=== PATIENT | female | born 1970 | race Caucasian/White ===

== ENCOUNTER 2017-01-08 09:05 | Emergency (ER) | payer BC ==
--- NOTE | 2017-01-08 09:44 | ER Document Report ---
ED Medical Screen (RME) - General Chief Complaint: Abscess Stated Complaint: ABCESS Mode of Arrival: Ambulatory Information source: Patient Notes: This is a 46-year-old female who presents with a 3 day history of right labial pain and swelling after shaving this weekend. She denies any fevers chills or systemic symptoms. No prior history of MRSA or abscess. I have greeted and performed a rapid initial assessment of this patient. A comprehensive ED assessment and evaluation of the patient, analysis of test results and completion of the medical decision making process will be conducted by additional ED providers. TRAVEL OUTSIDE OF THE [place] IN LAST 30 DAYS: No - Related Data Allergies/Adverse Reactions: promethazine HCl [From Phenergan] Allergy (Verified 01/08/17 11:12) Past Medical History - Past Medical History Cardiac Medical History: Reports: Hx Atrial Fibrillation, Hx Coronary Artery Disease, Hx Heart Attack, Hx Hypercholesterolemia, Hx Hypertension Renal/ Medical History: Denies: Hx Peritoneal Dialysis Past Surgical History: Reports: Hx Cardiac Catheterization - 2009, NO STENT, Hx Cholecystectomy, Hx Hysterectomy, Hx Tubal Ligation - Immunizations Immunizations up to date: Yes Hx Diphtheria, Pertussis, Tetanus Vaccination: Yes Physical Exam - Vital signs Vitals: Temp Pulse Resp BP Pulse Ox 97.8 F 84 16 154/90 H 99 01/08/17 09:07 01/08/17 09:07 01/08/17 09:07 01/08/17 09:07 01/08/17 09:07 Course - Vital Signs Vital signs: Temp Pulse Resp BP Pulse Ox 97.7 F 43 L 18 136/91 H 99 01/08/17 12:15 01/08/17 12:15 01/08/17 12:15 01/08/17 12:15 01/08/17 12:15 Doctor's Discharge - Discharge Clinical Impression: Bartholin's gland abscess, Hypertension Condition: Stable Disposition: HOME, SELF-CARE Additional Instructions: take antibiotic as prescribed pain med as needed wash area with antibacterial soap and water follow up with pcm/[facility]LE[facility]ER if pain persists Prescriptions: Oxycodone HCl/Acetaminophen [Percocet 5-325 mg Tablet] 1 - 2 tab PO ASDIR PRN # 15 tablet PRN Reason: Sulfamethoxazole/Trimethoprim [Bactrim Ds Tablet] 1 each PO BID #20 tablet Forms: Elevated Blood Pressure Referrals: JAMAAL PAK MD [Primary Care Provider] - Follow up as needed
[2017-01-08] MEDS ORDERED: LIDOCAINE 1% INJ-PF (10 MG/ML) 30 ML SDV INJ ONE (10:58)
--- NOTE | 2017-01-08 11:04 | ER Document Report ---
ED Skin Rash/Insect Bite/Abscs - General Chief Complaint: Abscess Stated Complaint: ABCESS Mode of Arrival: Ambulatory Notes: 46 yo female with 3 day hx/o right labial pain and swelling TRAVEL OUTSIDE OF THE [place] IN LAST 30 DAYS: No - HPI Patient complains to provider of: Tender/swollen area Onset/Duration: Persistent, Worse Quality of pain: Pressure, Sharp Skin Character: Abscess Quality of rash: Painful Exacerbated by: Movement, Walking Similar symptoms previously: No - Related Data Allergies/Adverse Reactions: promethazine HCl [From Phenergan] Allergy (Verified 07/22/16 16:47) Past Medical History - General Information source: Patient - Social History Smoking Status: Current Every Day Smoker Frequency of alcohol use: Rare Lives with: Family Family History: Reviewed & Not Pertinent - Past Medical History Cardiac Medical History: Reports: Hx Atrial Fibrillation, Hx Coronary Artery Disease, Hx Heart Attack, Hx Hypercholesterolemia, Hx Hypertension Renal/ Medical History: Denies: Hx Peritoneal Dialysis Past Surgical History: Reports: Hx Cardiac Catheterization - 2009, NO STENT, Hx Cholecystectomy, Hx Hysterectomy, Hx Tubal Ligation - Immunizations Immunizations up to date: Yes Hx Diphtheria, Pertussis, Tetanus Vaccination: Yes Review of Systems - Review of Systems Constitutional: No symptoms reported EENT: No symptoms reported Cardiovascular: No symptoms reported Respiratory: No symptoms reported Gastrointestinal: No symptoms reported Genitourinary: No symptoms reported Female Genitourinary: No symptoms reported Musculoskeletal: No symptoms reported Skin: See HPI Hematologic/Lymphatic: No symptoms reported Neurological/Psychological: No symptoms reported -: Yes All other systems reviewed and negative Physical Exam - Vital signs Vitals: Temp Pulse Resp BP Pulse Ox 97.8 F 84 16 154/90 H 99 01/08/17 09:07 01/08/17 09:07 01/08/17 09:07 01/08/17 09:07 01/08/17 09:07 Interpretation: Normal - General General appearance: Appears well, Alert - HEENT Head: Normocephalic, Atraumatic Eyes: Normal Pupils: PERRL - Respiratory Respiratory status: No respiratory distress Chest status: Nontender Breath sounds: Normal Chest palpation: Normal - Cardiovascular Rhythm: Regular Heart sounds: Normal auscultation Murmur: No - Abdominal Inspection: Normal Distension: No distension Bowel sounds: Normal Tenderness: Nontender Organomegaly: No organomegaly - Genitourinary External exam: Other - + abscess right labia - Back Back: Normal, Nontender - Extremities General upper extremity: Normal inspection, Nontender, Normal color, Normal ROM , Normal temperature General lower extremity: Normal inspection, Nontender, Normal color, Normal ROM , Normal temperature, Normal weight bearing. No: Salbador's sign - Neurological Neuro grossly intact: Yes Cognition: Normal Orientation: AAOx4 Dean Coma Scale Eye Opening: Spontaneous Dean Coma Scale Verbal: Oriented Dean Coma Scale Motor: Obeys Commands Dean Coma Scale Total: 15 Speech: Normal Motor strength normal: LUE, RUE, LLE, RLE Sensory: Normal - Psychological Associated symptoms: Normal affect, Normal mood - Skin Skin Temperature: Warm Skin Moisture: Dry Skin Color: Normal Course - Re-evaluation Re-evalutation: 01/08/17 11:04 BP noted to be elevated. pt in pain. taking meds as prescribed. asymptomatic with BP - Vital Signs Vital signs: Temp Pulse Resp BP Pulse Ox 97.8 F 84 16 154/90 H 99 01/08/17 09:07 01/08/17 09:07 01/08/17 09:07 01/08/17 09:07 01/08/17 09:07 Procedures - Incision and Drainage right labia Type: Simple Anesthetic type: 1% Lidocaine Blade size: 11 I&D procedure: Betadine prep applied, Iodoform packing placed Incision Method: Incision made by scalpel Amount/type of drainage: moderate amount Discharge - Discharge Clinical Impression: Bartholin's gland abscess Hypertension Qualifiers: Hypertension type: essential hypertension Qualified Code(s): I10 - Essential ( primary) hypertension Condition: Stable Disposition: HOME, SELF-CARE Additional Instructions: take antibiotic as prescribed pain med as needed wash area with antibacterial soap and water follow up with pcm/[employer] [facility] if pain persists Prescriptions: Oxycodone HCl/Acetaminophen [Percocet 5-325 mg Tablet] 1 - 2 tab PO ASDIR PRN # 15 tablet PRN Reason: Sulfamethoxazole/Trimethoprim [Bactrim Ds Tablet] 1 each PO BID #20 tablet Forms: Elevated Blood Pressure
[2017-01-08 12:18] VITALS: BP 136/91
== END 2017-01-08 12:18 | disposition home or self-care (01) ==
LOC: ER 09:05
PROC: 0U9L0ZZ Drainage of Vestibular Gland, Open Approach (ICD-10-PCS; principal; 2017-01-08)
DX: N75.1 Abscess of Bartholin's gland (principal); I10 Essential (primary) hypertension; F17.200 Nicotine dependence, unspecified, uncomplicated; I48.91 Unspecified atrial fibrillation; I25.10 Atherosclerotic heart disease of native coronary artery without angina pectoris; I25.2 Old myocardial infarction; E78.00 Pure hypercholesterolemia, unspecified; Z90.49 Acquired absence of other specified parts of digestive tract; Z90.710 Acquired absence of both cervix and uterus
CPT/HCPCS: 99283; 56420; J3490

== ENCOUNTER → 2017-02-20 | Outpatient (CLI) | payer BC ==
--- NOTE | 2017-02-20 11:41 | WOMENS IMAGING REPORT ---
EXAM DESCRIPTION: 3D SCREENING MAMMO BILAT COMPLETED DATE/TIME: 02/20/2017 10:55 am REASON FOR STUDY: Z12.31, ROUTINE SCREENING MAMMO Z12.31 ENCNTR SCREEN MAMMOGRAM FOR MALIGNANT NEOP LASM OF JOSEPH COMPARISON: None. TECHNIQUE: Standard craniocaudal and mediolateral oblique views of each breast recorded using digita l acquisition and breast tomosynthesis. LIMITATIONS: Jewelry artifact. FINDINGS: No masses, calcifications or architectural distortion. No areas of suspicion. Read with the assistance of CAD. .[facility] - R2 Cenova Version 1.3 .[facility] - R2 Cenova Version 1.3 .[facility] - R2 Cenova Version 2.4 .[facility] [place] - R2 Cenova Version 2.4 .[facility] - R2 Surgery Nurse Version 9.2 IMPRESSION: NORMAL MAMMOGRAM. BIRADS 1. BREAST DENSITY: a. The breasts are almost entirely fatty. BIRAD: 1 NEGATIVE RECOMMENDATION: ROUTINE SCREENING COMMENT: The patient has been notified of the results by letter per MQSA requirements. Additional no tification policies are in place for contacting patient with suspicious or incomplete findings. Quality ID #[id number]: The [employer] recommends an annual screening mammogram for women aged 40 years or over. This facility utilizes a reminder system to ensure that all patients receive reminder letters, and/or direct phone calls for appointments. This includes reminders for routine scr eening mammograms, diagnostic mammograms, or other Breast Imaging Interventions when appropriate. Th is patient will be placed in the appropriate reminder system. The [employer] (ACR) has developed recommendations for screening MRI of the breast s in certain patient populations, to be used in conjunction with mammography. Breast MRI surveillanc e may be appropriate for women with more than 20% lifetime risk of developing breast cancer as deter mined by genetic testing, significant family history of the disease, or history of mantle radiation f or Hodgkins Disease. ACR Practice Guidelines 2008. DBT Technology DBT is a type of tomographic mammography. With conventional mammography, overlapping breast tissue ma y make lesions difficult to detect, even with good compression. DBT uses an x-ray tube that rotates a round the breast, taking images at different angles. These images are then combined to create thin sl ices of the breast that the radiologist can view as a 3D reconstruction. The [employer] unit can perform full-field digital mammograms (2D imaging); or DBT (3D imaging); or both, in a combination mode that quickly performs both the mammogram and the tomosynthesis scan while the breast is still compressed. PQRS 6045F: Fluoroscopic imaging is not utilized for breast tomosynthesis. TECHNICAL DOCUMENTATION: FINDING NUMBER: (1) ASSESSMENT: (1) JOB ID: [id number] [employer]- All Rights Reserved
== END ==
LOC: WI 10:14
PROVIDERS: ATTEND Physician Assistant
DX: Z12.31 Encounter for screening mammogram for malignant neoplasm of breast (principal)
CPT/HCPCS: 77063; G0202; 77067

== ENCOUNTER 2017-12-04 15:16 | Observation (INO) | payer BC ==
[~2017-12-04 15:16] MED LIST: AMINOPHYLLINE INJ/PF 250 MG/10 ML SDV IV ONE; REGADENOSON INJ 0.4 MG/5 ML DISP.SYRIN IV ONE
--- NOTE | 2017-12-04 16:42 | ER Document Report ---
ED Medical Screen (RME) - General Chief Complaint: Chest Pain Stated Complaint: CHEST PAIN Time Seen by Provider: 12/04/17 16:34 Mode of Arrival: Ambulatory Information source: Patient Notes: 47-year-old female history of heart attack but who had a normal heart cath presents with complaints of chest pain jaw pain right knee pain Patient notes symptoms have included nausea vomiting fevers over the past few days and then pain today I have greeted and performed a rapid initial assessment of this patient. A comprehensive ED assessment and evaluation of the patient, analysis of test results and completion of the medical decision making process will be conducted by additional ED providers. PHYSICAL EXAMINATION: GENERAL: Well-appearing, well-nourished and in no acute distress. HEAD: Atraumatic, normocephalic. EYES: Pupils equal round extraocular movements intact, conjunctiva are normal. ENT: Nares patent NECK: Normal range of motion LUNGS: No respiratory distress Musculoskeletal: Normal range of motion NEUROLOGICAL: Normal speech, normal gait. PSYCH: Normal mood, normal affect. SKIN: Warm, Dry, normal turgor, no rashes or lesions noted. TRAVEL OUTSIDE OF THE [place] IN LAST 30 DAYS: No - Related Data Allergies/Adverse Reactions: promethazine HCl [From Phenergan] Allergy (Verified 12/04/17 15:25) Past Medical History - Social History Chew tobacco use (# tins/day): No Frequency of alcohol use: Occasional Drug Abuse: None - Past Medical History Cardiac Medical History: Reports: Hx Atrial Fibrillation, Hx Coronary Artery Disease, Hx Heart Attack, Hx Hypercholesterolemia, Hx Hypertension Renal/ Medical History: Denies: Hx Peritoneal Dialysis Past Surgical History: Reports: Hx Cardiac Catheterization - 2009, NO STENT, Hx Cholecystectomy, Hx Hysterectomy, Hx Tubal Ligation - Immunizations Immunizations up to date: Yes Hx Diphtheria, Pertussis, Tetanus Vaccination: Yes Physical Exam - Vital signs Vitals: Temp Pulse BP Pulse Ox 98.5 F 80 155/83 H 92 12/04/17 15:35 12/04/17 15:35 12/04/17 15:35 12/04/17 15:35 Course - Vital Signs Vital signs: Temp Pulse Resp BP Pulse Ox 98.5 F 80 155/83 H 92 12/04/17 15:35 12/04/17 15:35 12/04/17 15:35 12/04/17 15:35
[2017-12-04 17:19] LABS: ABSOLUTE EOSINOPHILS # (AUTO) 0.1 10^3/uL (0.0-0.6); ABSOLUTE LYMPHOCYTES (AUTO) 2.3 10^3/uL (0.5-4.7); ABSOLUTE MONOCYTES (AUTO) 0.3 10^3/uL (0.1-1.4); ABSOLUTE NEUT (AUTO) 5.1 10^3/uL (1.7-8.2); BASOPHILS % (AUTO) 0.1 % (0-2); HEMATOCRIT 39.9 % (36.0-47.0); HEMOGLOBIN 13.5 g/dL (12.0-15.5); LYMPHOCYTES % (AUTO) 29.5 % (13-45); MEAN CORPUSCULAR HEMOGLOBIN 29.2 pg (27.0-33.4); MEAN CORPUSCULAR HGB CONC 33.8 g/dL (32.0-36.0); MEAN CORPUSCULAR VOLUME 86 fl (80-97); MONOCYTES % (AUTO) 4.4 % (3-13); PLATELET COUNT 176 10^3/uL (150-450); RED BLOOD COUNT 4.62 10^6/uL (3.72-5.28); RED CELL DISTRIBUTION WIDTH 13.9 % (11.5-14.0); TOTAL CELLS COUNTED % (AUTO) 100 %; WHITE BLOOD COUNT 7.8 10^3/uL (4.0-10.5)
[2017-12-04 17:22] LABS: INTERNATIONAL RATION (INR) 0.85; PROTHROMBIN TIME 12.3 SEC (11.4-15.4)
[2017-12-04 17:25] LABS: D-DIMER 0.38 ug/mL (0.00-0.50)
[2017-12-04 17:34] LABS: VENOUS BLOOD BASE EXCESS 2.5 mmol/L; VENOUS BLOOD HCO3 28.9 mmol/L (20-32); VENOUS BLOOD PCO2 51.7 mmHg (35-63); VENOUS BLOOD PH 7.37 (7.30-7.42)
[2017-12-04 17:38] LABS: ALANINE AMINOTRANSFERASE 29 U/L (9-52); ALBUMIN 4.2 g/dL (3.5-5.0); ALKALINE PHOSPHATASE 67 U/L (38-126); ANION GAP 8 (5-19); ASPARTATE AMINO TRANSFERASE 18 U/L (14-36); BILIRUBIN,DIRECT 0.3 mg/dL (0.0-0.4); BILIRUBIN,TOTAL 0.3 mg/dL (0.2-1.3); BLOOD UREA NITROGEN 10 mg/dL (7-20); CALCIUM 9.4 mg/dL (8.4-10.2); CARBON DIOXIDE 31 mmol/L (22-30); CHLORIDE 102 mmol/L (98-107); CREATINE KINASE 64 U/L (30-135); GLUCOSE 89 mg/dL (75-110); POTASSIUM 4.2 mmol/L (3.6-5.0); SODIUM 141.1 mmol/L (137-145); TOTAL PROTEIN 7.8 g/dL (6.3-8.2)
[2017-12-04 17:50] LABS: CREATINE KINASE MB < 0.22 ng/mL (<4.55); TROPONIN I < 0.012 ng/mL
--- NOTE | 2017-12-04 17:54 | RADIOLOGY REPORT (SQ) ---
EXAM DESCRIPTION: CHEST PA/LAT COMPLETED DATE/TIME: 12/04/2017 5:24 pm REASON FOR STUDY: fever COMPARISON: 02/21/2016 EXAM PARAMETERS: NUMBER OF VIEWS: two views TECHNIQUE: Digital Frontal and Lateral radiographic views of the chest acquired. RADIATION DOSE: NA LIMITATIONS: none FINDINGS: LUNGS AND PLEURA: No acute opacities, masses or pneumothorax. No pleural effusion. MEDIASTINUM AND HILAR STRUCTURES: Stable. HEART AND VASCULAR STRUCTURES: Heart normal size. No evidence for failure. BONES: No acute findings. HARDWARE: None in the chest. OTHER: No other significant finding. IMPRESSION: No acute findings. TECHNICAL DOCUMENTATION: JOB ID: [id number] [place]-72 2010 [employer]- All Rights Reserved Reading location - IP/workstation name: [email or web address]
--- NOTE | 2017-12-04 18:04 | ER Document Report ---
ED Cardiac - General Chief Complaint: Chest Pain Stated Complaint: CHEST PAIN Time Seen by Provider: 12/04/17 16:34 Mode of Arrival: Ambulatory Information source: Patient TRAVEL OUTSIDE OF THE [place] IN LAST 30 DAYS: No - HPI Patient complains to provider of: Chest pain Use of: denies: Alcohol, Amphetamines, Bath salts, Caffeine, Cocaine, Decongestants Was the onset of pain: Gradual When did pain begin: FEW NIGHTS AGO Is the pain a: New problem Chest pain location: Other - UPPER STERNAL Quality of pain: Heaviness, Pressure Chest pain radiation location: Left jaw, Right jaw, Right arm Severity now: None Severity at worst: Moderate Chest pain precipitating factors: FREQUENT @ NIGHT, TODAY @ WORK Cardiac risk factors: Hypertension. denies: Smoker Positive cardiac history: Yes Associated symptoms: Diaphoresis, Lightheaded, Nausea/vomiting, Shortness of breath Exacerbated by: Denies Relieved by: Nothing Similar symptoms previously: Yes - NOT RECENT Recently seen / treated by doctor: No - Related Data Allergies/Adverse Reactions: promethazine HCl [From Phenergan] Allergy (Verified 12/04/17 15:25) Past Medical History - General Information source: Patient - Social History Smoking Status: Former Smoker Cigarette use (# per day): No Chew tobacco use (# tins/day): No Frequency of alcohol use: Occasional Drug Abuse: None Lives with: Family Family History: Reviewed & Not Pertinent Patient has suicidal ideation: No Patient has homicidal ideation: No - Past Medical History Cardiac Medical History: Reports: Hx Atrial Fibrillation, Hx Coronary Artery Disease, Hx Heart Attack, Hx Hypercholesterolemia, Hx Hypertension Pulmonary Medical History: Reports: None EENT Medical History: Reports: None Neurological Medical History: Reports: None Endocrine Medical History: Reports: None Renal/ Medical History: Reports: None. Denies: Hx Peritoneal Dialysis Malignancy Medical History: Reports: None GI Medical History: Reports: None Musculoskeltal Medical History: Reports None Psychiatric Medical History: Reports: None Past Surgical History: Reports: Hx Cardiac Catheterization - 2009, NO STENT, Hx Cholecystectomy, Hx Hysterectomy, Hx Tubal Ligation - Immunizations Immunizations up to date: Yes Hx Diphtheria, Pertussis, Tetanus Vaccination: Yes Review of Systems - Review of Systems Constitutional: Diaphoresis EENT: No symptoms reported Cardiovascular: See HPI Respiratory: See HPI Gastrointestinal: See HPI Genitourinary: No symptoms reported Female Genitourinary: denies: Musculoskeletal: No symptoms reported Skin: No symptoms reported Neurological/Psychological: No symptoms reported Physical Exam - Vital signs Vitals: Temp Pulse BP Pulse Ox 98.5 F 80 155/83 H 92 12/04/17 15:35 12/04/17 15:35 12/04/17 15:35 12/04/17 15:35 Interpretation: Hypertensive. No: Tachycardic, Tachypneic - General General appearance: Appears well, Alert In distress: None - HEENT Head: Normocephalic Eyes: Normal. No: Pale conjunctiva Conjunctiva: Normal Ears: Normal Nasal: Normal Mouth/Lips: Normal Mucous membranes: Normal - Respiratory Respiratory status: No respiratory distress Breath sounds: Normal - Cardiovascular Rhythm: Regular Heart sounds: Normal auscultation Murmur: No - Abdominal Inspection: Obese - Extremities General upper extremity: Normal inspection General lower extremity: Normal inspection. No: Tender, Edema - Neurological Neuro grossly intact: Yes Cognition: Normal Orientation: AAOx4 - Psychological Associated symptoms: Normal affect, Normal mood - Skin Skin Temperature: Warm Skin Moisture: Dry Skin Color: Normal Skin Turgor: Elastic Course - Vital Signs Vital signs: Temp Pulse Resp BP Pulse Ox 97.5 F 80 13 105/49 L 96 12/04/17 19:34 12/04/17 15:35 12/04/17 21:41 12/04/17 21:41 12/04/17 21:41 - Laboratory Result Diagrams: 12/04/17 16:58 12/04/17 16:58 Laboratory results interpreted by me: 12/04/17 16:58 Carbon Dioxide 31 H - Diagnostic Test Radiology reviewed: Image reviewed, Reports reviewed - EKG Interpretation by Sd EKG shows normal: Sinus rhythm Allen/QRS: RBBB, LAHB/LAFB Voltage: Consistant with LVH - Consults DR. TAN Time consulted: 22:12 Consulted provider: will come to ER Discharge - Discharge Clinical Impression: Chest pain Qualifiers: Chest pain type: unspecified Qualified Code(s): R07.9 - Chest pain, unspecified Hypertension Qualifiers: Hypertension type: essential hypertension Qualified Code(s): I10 - Essential ( primary) hypertension Condition: Stable Disposition: ADMITTED OBSERVATION Admitting Provider: Hospitalist Unit Admitted: Telemetry
[2017-12-04] MEDS ORDERED: NITROGLYCERIN 2% OINTMENT 1 GM PACKET TP ONE (18:08)
[2017-12-04] MEDS ORDERED: ACETAMINOPHEN 325 MG TABLET PO ONE (19:24)
[2017-12-04] MEDS ORDERED: HYDROMORPHONE HCL INJ/PF 2 MG/ML AMPULE IV ONE (20:52)
[2017-12-04] MEDS ORDERED: ONDANSETRON HCL INJ/PF 4 MG/2 ML SDV IV ONE (20:52)
--- NOTE | 2017-12-04 21:55 | EKG REPORT ---
SEVERITY:- ABNORMAL ECG - SINUS RHYTHM RBBB AND LAFB LEFT VENTRICULAR HYPERTROPHY : Confirmed by: Patrick Bird 04-Dec-2017 21:54:58
[2017-12-04] MEDS ORDERED: ALBUTEROL SULFATE 0.083% NEB 2.5 MG/3 ML AMPUL NEB PRN (22:24)
[2017-12-04] MEDS ORDERED: PROMETHAZINE HCL INJ 25 MG/1 ML VIAL IV PRN (22:24)
[2017-12-05] MEDS ORDERED: INFLUENZA ADLT QUAD (36MOS+) 2017-18 VAC 0.5 ML SYR IM PRN (00:49)
[2017-12-05] MEDS: ACETAMINOPHEN 325 MG TABLET PO PRN ×2 (01:12→12:48)
[2017-12-05] MEDS ORDERED: ONDANSETRON HCL INJ/PF 4 MG/2 ML SDV IV PRN (04:02)
--- NOTE | 2017-12-05 04:24 | PDOC H&P ---
History of Present Illness Patient complains of: Intermittent chest pain for the last few days. History of Present Illness: BOB AVALOS is a 47 year old female history of SD/nonobstructive coronary disease (post cardiac cath many years ago) and hypertension was admitted with above-mentioned complaints. According to the patient, she had cold-like symptoms for couple of days about a week ago. She had fever, cough and night sweats but her symptoms seemed to be resolving. And last night around 9 PM, she started feeling chest "heaviness" with pain radiating to her right arm and jaw. It lasted about a minute with no alleviating or aggravating factors. It was associated with shortness of breath, palpitations, nausea/vomiting and presyncope. And this afternoon while around 2:30 PM while sitting at her desk at work, she started feeling chest heaviness again with similar associated symptoms so she decided to come to the hospital for further management and treatment. She denied any fever this time or chills or any abdominal pain or heartburns. She has been having multiple episodes of diarrhea 4-5 times today with liquid, nonbloody stool. She said that her boyfriend had some upper respiratory infection recently. She denied any recent antibiotics use or eating different kind of food. She also denied any urinary symptoms or focal weakness. In the ED, her temperature was 98.5, heart rate 80, respiratory rate 16, blood pressure 155/83 with oxygen saturation of 92% on room air. Her WBC was 7.8 with hemoglobin of 13.5. Her initial troponin was negative. She received aspirin 325 mg 1 in addition to 1 inch of 2% Nitropaste and a 0.5 mg IV Dilaudid 1. Past Medical History Cardiac Medical History: Reports: Coronary Artery Disease - nonobstructive., Myocardial Infarction, Hyperlipidema, Hypertension, Other - bradycardia while on medications Pulmonary Medical History: Reports: None EENT Medical History: Reports: None Neurological Medical History: Reports: None Endocrine Medical History: Reports: None Renal/ Medical History: Reports: None Malignancy Medical History: Reports: None GI Medical History: Reports: None Musculoskeltal Medical History: Reports: None Psychiatric Medical History: Reports: None Past Surgical History Past Surgical History: Reports: Cardiac Catheterization - 2009, NO STENT, Cholecystectomy, Hysterectomy, Tubal Ligation Social History Lives with: Family Smoking Status: Former Smoker Cigarettes Packs Per Day: 0.5 - Pack every 2-3 weeks. She quit that 2 years ago. Frequency of Alcohol Use: None Hx Recreational Drug Use: No Drugs: None Hx Prescription Drug Abuse: Yes - Advance Directive Resuscitation Status: Full Code Family History Parental Family History Reviewed: Yes - Father: of SD at the age of 50. Children Family History Reviewed: No Sibling(s) Family History Reviewed.: Yes Medication/Allergy Home Medications: Hydrochlorothiazide 25 mg PO DAILY #30 tablet 03/05/15 Allergies/Adverse Reactions: promethazine HCl [From Phenergan] Allergy (Verified 12/04/17 15:25) Review of Systems ROS unobtainable: Other - Pertinent positives and negatives as detailed in the HPI. Physical Exam Vital Signs: Temp Pulse Resp BP Pulse Ox 97.5 F 80 15 122/60 98 12/04/17 19:34 12/04/17 15:35 12/04/17 22:00 12/04/17 22:00 12/04/17 22:00 Intake & Output 12/03/17 12/04/17 12/05/17 06:59 06:59 06:59 Weight 121.6 kg General appearance: PRESENT: no acute distress, well-developed, well-nourished Head exam: PRESENT: atraumatic, normocephalic Eye exam: PRESENT: conjunctiva pink, PERRLA. ABSENT: scleral icterus Mouth exam: PRESENT: moist, neck supple Neck exam: PRESENT: full ROM. ABSENT: JVD Respiratory exam: PRESENT: clear to auscultation leonard. ABSENT: rales, rhonchi, wheezes Cardiovascular exam: PRESENT: RRR, +S1, +S2 Pulses: PRESENT: normal dorsalis pedis pul GI/Abdominal exam: PRESENT: normal bowel sounds, soft. ABSENT: distended, rebound, tenderness Rectal exam: PRESENT: deferred Extremities exam: ABSENT: pedal edema Musculoskeletal exam: PRESENT: full ROM Neurological exam: PRESENT: alert, altered, awake, oriented to person. ABSENT: motor sensory deficit - grossly. Results Laboratory Results: 12/04/17 16:58 12/04/17 16:58 12/04/17 12/04/17 12/04/17 16:58 16:58 16:58 WBC 7.8 RBC 4.62 Hgb 13.5 Hct 39.9 MCV 86 MCH 29.2 MCHC 33.8 RDW 13.9 Plt Count 176 Seg Neutrophils % 65.0 Lymphocytes % 29.5 Monocytes % 4.4 Eosinophils % 1.0 Basophils % 0.1 Absolute Neutrophils 5.1 Absolute Lymphocytes 2.3 Absolute Monocytes 0.3 Absolute Eosinophils 0.1 Absolute Basophils 0.0 VBG pH VBG pCO2 VBG HCO3 VBG Base Excess Sodium 141.1 Potassium 4.2 Chloride 102 Carbon Dioxide 31 H Anion Gap 8 BUN 10 Creatinine 0.83 Est GFR ( Amer) > 60 Est GFR (Non-Af Amer) > 60 Glucose 89 Lactic Acid 0.9 Calcium 9.4 Total Bilirubin 0.3 AST 18 ALT 29 Alkaline Phosphatase 67 Total Protein 7.8 Albumin 4.2 12/04/17 16:58 WBC RBC Hgb Hct MCV MCH MCHC RDW Plt Count Seg Neutrophils % Lymphocytes % Monocytes % Eosinophils % Basophils % Absolute Neutrophils Absolute Lymphocytes Absolute Monocytes Absolute Eosinophils Absolute Basophils VBG pH 7.37 VBG pCO2 51.7 VBG HCO3 28.9 VBG Base Excess 2.5 Sodium Potassium Chloride Carbon Dioxide Anion Gap BUN Creatinine Est GFR ( Amer) Est GFR (Non-Af Amer) Glucose Lactic Acid Calcium Total Bilirubin AST ALT Alkaline Phosphatase Total Protein Albumin 12/04/17 12/04/17 16:58 16:58 Creatine Kinase 64 CK-MB (CK-2) < 0.22 Troponin I < 0.012 EKG Comments: 12 lead EKG, sinus rhythm, ventricular rate 70, axis -50, T wave inversion in lead III and flat in aVF V3, RBBB, poor R-wave propagation. No previous EKG to compare. Impressions: Chest X-Ray 12/04/17 16:34 IMPRESSION: No acute findings. Assessment & Plan - Diagnosis (1) Chest pain Qualifiers: Chest pain type: unspecified Qualified Code(s): R07.9 - Chest pain, unspecified Is this a current diagnosis for this admission?: Yes Plan: CXR reviewed. We will continue to cycle cardiac enzymes and repeat a 12-lead EKG. We will also check FLP and an echocardiogram (the patient mentioned that she had some kind of valve anomaly). If troponins x2 are negative, she be scheduled for a nuclear stress test in a.m. Will start PPI. (2) Essential hypertension Is this a current diagnosis for this admission?: Yes Plan: Will resume her hydrochlorothiazide. According to the patient, she was previously placed on a blood pressure medication (possibly beta yvonne) which made her very bradycardic she was actually evaluated for possible pacemaker. (3) Nausea & vomiting Is this a current diagnosis for this admission?: Yes Plan: And diarrhea, possibly secondary to viral infection. Will monitor for now. (4) Morbid obesity with body mass index (BMI) of 45.0 to 49.9 in adult Is this a current diagnosis for this admission?: No - Time Time Spent: 50 to 70 Minutes Anticipated discharge: Home
[2017-12-05 04:47] LABS: HEMATOCRIT 36.9 % (36.0-47.0); HEMOGLOBIN 12.5 g/dL (12.0-15.5); MEAN CORPUSCULAR HEMOGLOBIN 29.3 pg (27.0-33.4); MEAN CORPUSCULAR VOLUME 86 fl (80-97); PLATELET COUNT 150 10^3/uL (150-450); RED BLOOD COUNT 4.28 10^6/uL (3.72-5.28); RED CELL DISTRIBUTION WIDTH 13.9 % (11.5-14.0); WHITE BLOOD COUNT 7.1 10^3/uL (4.0-10.5)
[2017-12-05 05:04] LABS: ANION GAP 10 (5-19); BLOOD UREA NITROGEN 10 mg/dL (7-20); CALCIUM 8.9 mg/dL (8.4-10.2); CARBON DIOXIDE 28 mmol/L (22-30); CHLORIDE 102 mmol/L (98-107); CHOLESTEROL 138.99 mg/dL (0-200); GLUCOSE 101 mg/dL (75-110); POTASSIUM 4.6 mmol/L (3.6-5.0); SODIUM 139.7 mmol/L (137-145); TRIGLYCERIDES 157 mg/dL (<150)
[2017-12-05 05:15] LABS: DIRECT LDL 76 mg/dL (<100)
[2017-12-05 05:21] LABS: VLDL CHOLESTEROL 31.4 mg/dL (10-31)
[2017-12-05] MEDS: LANSOPRAZOLE 30 MG TAB.RAP.DR PO SCH ×2 (07:12→16:53)
[2017-12-05] MEDS ORDERED: ASPIRIN 325 MG TABLET, ENT COATED PO SCH (10:00)
[2017-12-05] MEDS: ENOXAPARIN SODIUM INJ 40 MG/0.4 ML DISP.SYRIN SUBCUT SCH (10:52)
--- NOTE | 2017-12-05 11:38 | PDOC CONSULTATION ---
Consultation Consult Date: 12/05/17 Attending physician:: CINTHIA JAY Consult reason:: Chest pain History of Present Illness Admission Date/PCP: 12/04/17 22:25 Patient complains of: Chest pain History of Present Illness: BOB AVALOS is a 47 year old female history of GA/nonobstructive coronary disease (post cardiac cath many years ago) and hypertension was admitted with above-mentioned complaints. According to the patient, she had cold-like symptoms for couple of days about a week ago. She had fever, cough and night sweats but her symptoms seemed to be resolving. And last night around 9 PM, she started feeling chest "heaviness" with pain radiating to her right arm and jaw. It lasted about a minute with no alleviating or aggravating factors. It was associated with shortness of breath, palpitations, nausea/vomiting and presyncope. And this afternoon while around 2:30 PM while sitting at her desk at work, she started feeling chest heaviness again with similar associated symptoms so she decided to come to the hospital for further management and treatment. She denied any fever this time or chills or any abdominal pain or heartburns. She has been having multiple episodes of diarrhea 4-5 times today with liquid, nonbloody stool. She said that her boyfriend had some upper respiratory infection recently. She denied any recent antibiotics use or eating different kind of food. She also denied any urinary symptoms or focal weakness. In the ED, her temperature was 98.5, heart rate 80, respiratory rate 16, blood pressure 155/83 with oxygen saturation of 92% on room air. Her WBC was 7.8 with hemoglobin of 13.5. Her initial troponin was negative. She received aspirin 325 mg 1 in addition to 1 inch of 2% Nitropaste and a 0.5 mg IV Dilaudid 1. This history obtained by the hospitalist was reviewed and confirmed. Patient denied any prior history of blood clots in the legs are in the lungs. She does suffer from acid reflux. Patient has noted some stress. Past Medical History Cardiac Medical History: Reports: Atrial Fibrillation, Coronary Artery Disease - nonobstructive., Myocardial Infarction, Hyperlipidema, Hypertension, Other - bradycardia while on medications Pulmonary Medical History: Reports: None EENT Medical History: Reports: None Neurological Medical History: Reports: None Endocrine Medical History: Reports: None Renal/ Medical History: Reports: None Malignancy Medical History: Reports: None GI Medical History: Reports: None Musculoskeltal Medical History: Reports: None Psychiatric Medical History: Reports: None Past Surgical History Past Surgical History: Reports: Cardiac Catheterization - 2010, NO STENT, Cholecystectomy, Hysterectomy, Tubal Ligation Social History Information Source: Patient Lives with: Family Smoking Status: Former Smoker Cigarettes Packs Per Day: 0.5 - Pack every 2-3 weeks. She quit that 2 years ago. Frequency of Alcohol Use: None Hx Recreational Drug Use: No Drugs: None Hx Prescription Drug Abuse: Yes - Advance Directive Resuscitation Status: Full Code Family History Family History: Hypertension Parental Family History Reviewed: Yes Children Family History Reviewed: Yes Sibling(s) Family History Reviewed.: Yes Medication/Allergy Home Medications: Hydrochlorothiazide 25 mg PO DAILY #30 tablet 03/05/15 Allergies/Adverse Reactions: promethazine HCl [From Phenergan] Allergy (Verified 12/04/17 15:25) Review of Systems Review of Systems: Please see history of present illness and past medical history as wall. Constitutional: No fever or chills reported. Head : No recent chronic headaches, recent head injury. Eyes: No recent eye pain, diplopia, redness, discharge, acute visual changes. Ears: No recent chronic ear pain, acute hearing loss, ear discharge. Oral cavity: No recent ulcerations, bleeding, oral cavity discomfort. Neck: No recent acute neck pain reported. Hematologic: No recent easy bruising or bleeding or hematologic malignancy reported. Lymphatic: No recent lymphatic malignancy, chronic lymphadenopathy reported yet Cardiovascular system review: See history of present illness. Respiratory system review: No recent chronic cough, hemoptysis, blood clots in the lungs reported. Mild Shortness of breath on exertion Gastrointestinal system review: Negative for any recent acute or chronic abdominal pain, hematemesis, melena, recent change in bowel habits. Genitourinary system review: No recent acute or chronic hematuria, flank pain, UTI etc. reported. Skin system review: Negative for any recent abnormal bruising, no rash, no pruritus reported. Neurologic: No prior history of strokes, mini strokes, seizure disorder. Psychologic: No history of major psychosis or major depression reported. Musculoskeletal: Minor aches and pains reported. No acute joint swelling reported. Endocrine: No recent polyuria, polydipsia, recent heat or cold intolerance. Physical Exam Vital Signs: Temp Pulse Resp BP Pulse Ox 98.6 F 56 L 16 108/54 L 97 12/05/17 07:52 12/05/17 07:52 12/05/17 07:52 12/05/17 07:52 12/05/17 07:52 Intake & Output 12/04/17 12/05/17 12/06/17 06:59 06:59 06:59 Output Total 0 Balance 0 Weight 121.6 kg Exam: GENERAL: well-nourished and in no acute distress. Alert and oriented x3 HEAD: Atraumatic, normocephalic. EYES: Pupils equal round and reactive to light, extraocular movements intact, sclera anicteric, conjunctiva are normal. ENT: TMs normal, nares patent, oropharynx clear without exudates. Moist mucous membranes. No oral ulcerations or bleeding gums noted NECK: supple without lymphadenopathy. Trachea is central. No cervical or axillary lymphadenopathy noted. Carotids are 2+, JVD WNL LUNGS: Respiration seems nonlabored, no significant accessory muscle action noted. Breath sounds clear to auscultation bilaterally and equal noted. No wheezes rales or rhonchi noted. No significant dullness noted on percussion. CHEST: Palpation of the chest wall shows no significant chest wall tenderness. No other significant abnormalities noted. HEART: [place] [employer], No PSH, 1/6 CHAVO aortic area, 1/6 price systolic murmur mitral area, no rubs, no gallops. ABDOMEN: Soft, no significant tenderness appreciated, normoactive bowel sounds. No guarding, no rebound. No rigidity noted . No masses appreciated. EXTREMITIES: Pedal pulses are 1-2+, no calf tenderness noted. No clubbing or cyanosis.trace pedal edema noted NEUROLOGICAL: Focused neurological exam showed no significant neurologic deficit. Normal speech, no focal weakness appreciated. PSYCH: Normal mood, normal affect. Judgment and insight within normal limits. SKIN: No significant ecchymosis, skin is noted to be warm. MUSCULOSKELETAL EXAM: No significant acute joint swelling noted. Results Laboratory Results: 12/05/17 04:27 12/05/17 04:27 12/05/17 12/05/17 04:27 04:27 WBC 7.1 RBC 4.28 Hgb 12.5 Hct 36.9 MCV 86 MCH 29.3 MCHC 34.0 RDW 13.9 Plt Count 150 Sodium 139.7 Potassium 4.6 Chloride 102 Carbon Dioxide 28 Anion Gap 10 BUN 10 Creatinine 0.72 Est GFR ( Amer) > 60 Est GFR (Non-Af Amer) > 60 Glucose 101 Calcium 8.9 Magnesium 2.0 Triglycerides 157 H Cholesterol 138.99 LDL Cholesterol Direct 76 VLDL Cholesterol 31.4 H HDL Cholesterol 34 L 12/04/17 12/05/17 22:47 04:27 Troponin I < 0.012 < 0.012 EKG Comments: Sinus rhythm with minor nonspecific ST-T changes noted. Impressions: Chest X-Ray 12/04/17 16:34 IMPRESSION: No acute findings. Assessment & Plan - Diagnosis (1) Chest pain Qualifiers: Chest pain type: unspecified Qualified Code(s): R07.9 - Chest pain, unspecified Is this a current diagnosis for this admission?: Yes (2) Gastroesophageal reflux Qualifiers: Esophagitis presence: esophagitis presence not specified Qualified Code(s) : K21.9 - Gastro-esophageal reflux disease without esophagitis Is this a current diagnosis for this admission?: Yes (3) Obesity Qualifiers: Obesity type: unspecified obesity type Obesity classification: unspecified obesity classification Is this a current diagnosis for this admission?: Yes (4) Essential hypertension Is this a current diagnosis for this admission?: Yes - Notes Notes: Chest pain: Patient has some typical and atypical features of chest pain. Cardiac enzymes so far has been negative. Electrocardiogram did not show any definitive ST segment changes. Multiple differential diagnoses exist in this patient. In descending order of probability this includes underlying coronary artery disease, gastroesophageal reflux, musculoskeletal pain, referred pain from elsewhere, anxiety panic disorder etc.Patient has significant cardiac risk factors, which indicates that there is a intermediate probability of chest discomfort coming from underlying CAD. Feel that it would need to be evaluated further. Discussed evaluation to assess this. In this regard risk benefits of nuclear stress test and other alternative processes were discussed in detail. The patient prefers to undergo nuclear stress test. The small risk of radiation , myocardial infarction, , cardiac arrhythmias, respiratory distress etc. were discussed. Patient understood the risks and gave informed consent. Nuclear stress test was therefore scheduled. For risk evaluation, patient is also being scheduled for a 2-D echocardiogram. Patient questions were answered. Hypertension: Reasonably well controlled. Blood pressure goal in this patient is 135/85 or less. This was discussed with the patient. Currently blood pressure under reasonable control. Better medication for this patient are LIA inhibitor/ARB/beta yvonne etc. discussed side effects of uncontrolled hypertension and also severe hypotension. GERD: Patient seems to have this condition. Proton pump inhibitors and other antacids are recommended. Obesity: Patient has been recommended for weight loss. Dyspnea on exertion: Agree with obtaining 2D echocardiogram. Patient will benefit from regular walking program and weight loss. - Time Time Spent: 30 to 50 Minutes Medications reviewed and adjusted accordingly: Yes
[2017-12-05] MEDS: HYDROCHLOROTHIAZIDE 25 MG TABLET PO SCH (11:50)
[2017-12-05] MEDS ORDERED: NITROGLYCERIN 0.4 MG/TAB 25 TAB/BOTTLE SL PRN (12:28)
[2017-12-05] MEDS ORDERED: MORPHINE SULFATE 10 MG/ML INJ IV PRN (12:29)
--- NOTE | 2017-12-05 13:49 | DRAGON STRESS TEST REPORT ---
INTRAVENOUS LEXISCAN CARDIOLITE STRESS TEST USING SINGLE PHOTON EMMISION COMPUTERIZED TOMOGRAPHIC. DATE OF PROCEDURE: December 05, 2017, INDICATION : Chest pain CARDIAC RISK FACTORS: Hypertension, family history of heart disease RESTING EKG: Sinus rhythm with right bundle branch block pattern STRESS EKG: No significant ST segment changes noted with LexiScan bolus REASON FOR TERMINATION: Protocol. PROCEDURE REPORT: Baseline heart rate 57 beats per minute with blood pressure of 106/60. Patient had no significant complaints. Patient was bolused with Lexiscan 0.4 mg intravenously followed by saline bolus. Heart rate at 2 minutes post bolus 70 with a blood pressure of 117/53. 3 minutes post bolus heart rate 62 with blood pressure of 99/57. No significant EKG changes were noted. Patient had no significant complaints during the procedure or postprocedure. Patient injected with Aminophyllin 75 mg at 3 minutes or later after Lexiscan bolus. CONCLUSIONS: Normal EKG and hemodynamic response to IV LexiScan. NUCLEAR DATA: At rest the patient was given [13.88] millicuries of technetium 99 sestamibi injected intravenously. As per protocol rest gated SPECT images were obtained. On day of stress test, the patient was given intravenous LexiScan at a dose of 0.4 mg in 5 mL intravenously, followed by flush with normal saline. Subsequently the stress dose of [40.5] millicuries of technetium 99 sestamibi was injected intravenously. As per protocol stress gated images were obtained. NUCLEAR INTERPRETATION: Both raw and processed data were used for interpretation. Visual, qualitative, computer-generated quantitative data was used. There was good myocardial uptake of technetium compound. Motion artifact and soft tissue attenuations were noted. Increased visceral uptake was noted. Significant breast attenuation artifact was noted. Mild decreased uptake noted in the stress imaging in the mid and distal anterior wall, most likely related to differences in breast attenuation but cannot rule out mild ischemia, No definitive areas of fixed perfusion defect or scars noted. EKG gated imaging showed LV EF at 54 %, rest and stress gated EF similar visually. T. I D. ratio was 1.11. Lung heart ratio noted to be within normal limits 0.25. No significant extracardiac and abnormal radiotracer activities were noted. RV free wall uptake was noted to be WNL. IMPRESSION: Also refer to comments under nuclear interpretation. Also test results needs to be interpreted in the context of pretest probability. 1. Mild decreased uptake noted in the stress imaging in the mid and distal anterior wall, most likely related to differences in breast attenuation but cannot rule out mild ischemia. 2. There is no definitive scintigraphic evidence of myocardial infarction/scar. 3. EKG gated imaging shows left ventricular ejection fraction of approx. 54 %, no definite wall motion normality is noted. 4. Clinical correlation requested as occasionally single vessel disease or balanced ischemia could be missed. In approximately 10% of the cases Lexiscan may not cause adequate vasodilatory stress. RECOMMENDATIONS: Aggressive risk factor modification and medical management. Further evaluation may be needed if continued symptoms or other high risk indicators are noted on clinical evaluation. Close cardiology follow-up is also recommended. Clinical correlation with echocardiogram derived ejection fraction. Inability to exercise by itself can lead to increased cardiovascular event risks. Consider cardiology consultation and or follow-up if clinically indicated. I am available for cardiology evaluation and consultation if requested by the neonatologist, unless patient already has a staff readiness officer. ANUPAM
--- NOTE | 2017-12-05 17:44 | PDOC PROGRESS REPORT ---
Subjective Progress Note for:: 12/05/17 Subjective:: BOB AVALOS is a 47 y.o. female presented to [facility] for chest "heaviness" radiating to her right arm and jaw. The patient was admitted for chest pain observation. Patient was seen this morning on rounds following her Cardiolite stress test. The patient was complaining of very mild midsternal chest pressure. EKG showed normal sinus rhythm with no evidence of ischemia or infarction. The patient was given 1 sublingual nitro tablet and her chest pain was relieved. Serial cardiac enzymes have been negative. Reason For Visit: CHEST PAIN Physical Exam Vital Signs: Temp Pulse Resp BP Pulse Ox 97.6 F 63 16 121/59 L 98 12/05/17 11:41 12/05/17 16:54 12/05/17 16:54 12/05/17 11:41 12/05/17 16:54 Intake & Output 12/04/17 12/05/17 12/06/17 06:59 06:59 06:59 Output Total 0 Balance 0 Weight 121.6 kg General appearance: PRESENT: no acute distress Head exam: PRESENT: atraumatic Eye exam: PRESENT: conjunctiva pink Mouth exam: PRESENT: moist Neck exam: PRESENT: full ROM Respiratory exam: PRESENT: clear to auscultation leonard, symmetrical, unlabored Cardiovascular exam: PRESENT: +S1, +S2 Pulses: PRESENT: normal radial pulses, normal dorsalis pedis pul GI/Abdominal exam: PRESENT: normal bowel sounds, soft Rectal exam: PRESENT: deferred Extremities exam: PRESENT: full ROM Musculoskeletal exam: PRESENT: ambulatory Neurological exam: PRESENT: alert, awake, oriented to person, oriented to place , oriented to time, oriented to situation Psychiatric exam: PRESENT: appropriate affect Skin exam: PRESENT: normal color Results Laboratory Results: 12/05/17 04:27 12/05/17 04:27 12/05/17 12/05/17 04:27 04:27 WBC 7.1 RBC 4.28 Hgb 12.5 Hct 36.9 MCV 86 MCH 29.3 MCHC 34.0 RDW 13.9 Plt Count 150 Sodium 139.7 Potassium 4.6 Chloride 102 Carbon Dioxide 28 Anion Gap 10 BUN 10 Creatinine 0.72 Est GFR ( Amer) > 60 Est GFR (Non-Af Amer) > 60 Glucose 101 Calcium 8.9 Magnesium 2.0 Triglycerides 157 H Cholesterol 138.99 LDL Cholesterol Direct 76 VLDL Cholesterol 31.4 H HDL Cholesterol 34 L 12/04/17 12/05/17 12/05/17 22:47 04:27 11:47 Troponin I < 0.012 < 0.012 < 0.012 Impressions: Chest X-Ray 12/04/17 16:34 IMPRESSION: No acute findings. Status: Imported from PACS Assessment & Plan - Diagnosis (1) Chest pain Qualifiers: Chest pain type: unspecified Qualified Code(s): R07.9 - Chest pain, unspecified Is this a current diagnosis for this admission?: Yes Plan: The patient complains of midsternal chest pressure. 12-lead EKG negative for acute ischemia or infarction. Serial cardiac enzymes have been negative. Cardiology consulted. Cardiolite stress test and echocardiogram completed today. Results pending. Chest x-ray benign. Continue aspirin, home dose hydrochlorothiazide. (2) Essential hypertension Is this a current diagnosis for this admission?: Yes Plan: Patient reports history of hypertension, continue home dose hydralazine. Of note, the patient was previously on a beta-yvonne which made her very bradycardic, she was actually evaluated for a possible pacemaker. Determined that she no longer needs the pacemaker once she stopped the BB medication (3) Nausea & vomiting Is this a current diagnosis for this admission?: Yes - Time Time Spent with patient: 15-24 minutes Medications reviewed and adjusted accordingly: Yes Anticipated discharge: Home Within: within 48 hours - Inpatient Certification Based on my medical assessment, after consideration of the patient's comorbidities, presenting symptoms, or acuity I expect that the services needed warrant INPATIENT care.: Yes I certify that my determination is in accordance with my understanding of Medicare's requirements for reasonable and necessary INPATIENT services [42 CFR 412.3e].: Yes Medical Necessity: Risk of Complication if Not Cared For in Hospital - Plan Summary Plan Summary: Complete cardiac workup. Barring any complications the patient should be discharged home with follow-up to [facility] within 1 week.
[2017-12-05 19:22] LABS: APPEARANCE,URINE CLOUDY; BILIRUBIN,URINE NEGATIVE (NEGATIVE); COLOR,URINE YELLOW; GLUCOSE, URINE NEGATIVE (NEGATIVE); KETONES,URINE NEGATIVE (NEGATIVE); LEUKOCYTE ESTERASE,URINE NEGATIVE (NEGATIVE); NITRITE,URINE NEGATIVE (NEGATIVE); PROTEIN,URINE NEGATIVE (NEGATIVE); URINE SPECIFIC GRAVITY 1.018
--- NOTE | 2017-12-05 19:27 | XCELERA REPORT ---
[address] [address] Transthoracic Echocardiogram Report Name: BOB AVALOS Age: 47 yrs Gender: Female : 1970 Patient Status: Inpatient Patient Location: [address] [place] [address] Study Date: 12/05/2017 03:21 PM Height: 65 in Weight: 268 lb BSA: 2.2 m2 Procedure: A complete two-dimensional transthoracic echocardiogram was performed (2D, M-mode, spectral and color flow Doppler). The study was technically adequate with some images being suboptimal in quality. Reason For Study: chest pain Ordering Physician: KISHA TAN Performed By: Lindsey Brown Interpretation Summary The left ventricular ejection fraction is normal. There is borderline concentric left ventricular hypertrophy. The left ventricle is grossly normal size. Doppler measurements suggest impaired left ventricular relaxation, which is associated with grade I/IV or mild diastolic dysfunction Wall motion cannot be accurately commented on, but no definite regional wall motion abnormalities noted. The right ventricle is mildly dilated. The right ventricular systolic function is normal. The right atrium is borderline dilated. The left atrial size is normal. There is a trace amount of mitral regurgitation There is no mitral valve stenosis. There is no aortic valve stenosis There is a mild to moderate amount of aortic regurgitation There is a mild amount of tricuspid regurgitation There is mild pulmonary hypertension by echo Right ventricular systolic pressure is estimated to be elevated at 30- 40mmHg. The aortic root is not well visualized but is probably normal size. The inferior vena cava appeared normal and decreased > 50% with respiration (RAP 5-10 mmHg) There is no pericardial effusion. MMode/2D Measurements & Calculations RVDd: 2.9 cm LVIDd: 4.4 cm FS: 32.9 % Ao root diam: 3.1 cm IVSd: 1.0 cm LVIDs: 3.0 cm EDV(Teich): 89.7 ml LVPWd: 0.93 cmESV(Teich): 34.5 ml Ao root area: 7.3 cm2 EF(Teich): 61.6 % LA dimension: 3.4 cm LVOT diam: 2.2 cm LVOT area: 3.6 cm2 Doppler Measurements & Calculations MV E max mary: MV P1/2t max mary: Ao V2 max: AI max mary: 87.4 cm/sec 87.4 cm/sec 168.9 cm/sec 419.4 cm/sec MV A max mary: MV P1/2t: 43.8 msec Ao max PG: AI max P.9 cm/sec MVA(P1/2t): 5.0 cm2 11.4 mmHg 70.4 mmHg MV E/A: 1.1 MV dec slope: ERIC(V,D): 2.4 cm2 AI dec slope: 584.1 cm/sec2 145.4 cm/sec2 AI P1/2t: 844.7 msec LV V1 max PG: PA V2 max: TR max mary: 5.2 mmHg 89.3 cm/sec 267.6 cm/sec LV V1 max: PA max P.2 mmHg TR max P.5 cm/sec 28.6 mmHg Left Ventricle The left ventricle is grossly normal size. There is borderline concentric left ventricular hypertrophy. The left ventricular ejection fraction is normal. Doppler measurements suggest impaired left ventricular relaxation, which is associated with grade I/IV or mild diastolic dysfunction. Wall motion cannot be accurately commented on, but no definite regional wall motion abnormalities noted. Right Ventricle The right ventricle is mildly dilated. There is normal right ventricular wall thickness. The right ventricular systolic function is normal. Atria The right atrium is borderline dilated. The left atrial size is normal. Interarterial septum not well visualized and not well dopplered. Cannot comment on ASD/PFO presence. Mitral Valve The mitral valve is grossly normal. There is no mitral valve stenosis. There is a trace amount of mitral regurgitation. Aortic Valve The aortic valve is not well visualized secondary to technical limitations. There is no aortic valve stenosis. There is a mild to moderate amount of aortic regurgitation. Tricuspid Valve The tricuspid valve is not well visualized, but is grossly normal. There is no tricuspid stenosis. There is a mild amount of tricuspid regurgitation. There is mild pulmonary hypertension by echo. Right ventricular systolic pressure is estimated to be elevated at 30-40mmHg. Pulmonic Valve The pulmonic valve is not well visualized. Great Vessels The aortic root is not well visualized but is probably normal size. The inferior vena cava appeared normal and decreased > 50% with respiration (RAP 5-10 mmHg). Effusions There is no pericardial effusion. : KISHA TAN > Patrick Bird
--- NOTE | 2017-12-05 22:01 | EKG REPORT ---
SEVERITY:- ABNORMAL ECG - SINUS RHYTHM RBBB AND LAFB PROBABLE LEFT VENTRICULAR HYPERTROPHY : Confirmed by: Patrick Bird 05-Dec-2017 22:01:00
--- NOTE | 2017-12-05 22:02 | EKG REPORT ---
SEVERITY:- ABNORMAL ECG - SINUS RHYTHM RBBB AND LAFB PROBABLE LEFT VENTRICULAR HYPERTROPHY : Confirmed by: Patrick Bird 05-Dec-2017 22:01:25
--- NOTE | 2017-12-05 22:02 | EKG REPORT ---
SEVERITY:- ABNORMAL ECG - SINUS RHYTHM RBBB AND LAFB PROBABLE LEFT VENTRICULAR HYPERTROPHY : Confirmed by: Patrick Bird 05-Dec-2017 22:01:14
[2017-12-06] MEDS: LANSOPRAZOLE 30 MG TAB.RAP.DR PO SCH ×2 (06:23→06:24)
--- NOTE | 2017-12-06 09:10 | EKG REPORT ---
SEVERITY:- ABNORMAL ECG - SINUS RHYTHM RBBB AND LAFB PROBABLE LEFT VENTRICULAR HYPERTROPHY : Confirmed by: Patrick Bird 06-Dec-2017 09:10:08
[2017-12-06] MEDS: HYDROCHLOROTHIAZIDE 25 MG TABLET PO SCH (09:43)
[2017-12-06] MEDS: ENOXAPARIN SODIUM INJ 40 MG/0.4 ML DISP.SYRIN SUBCUT SCH (09:43)
[2017-12-06] MEDS ORDERED: ASPIRIN 81 MG TABLET, CHEWABLE PO SCH (10:00)
[2017-12-06 12:29] VITALS: BP 118/59
--- NOTE | 2017-12-06 13:31 | PDOC PROGRESS REPORT ---
Subjective Progress Note for:: 12/06/17 Subjective:: Patient seen on morning rounds. Patient seems to be doing better, no further recurrence of chest pain. Pt is denying any chest arm or neck discomfort. Patient denying any PND, orthopnea. Patient denied any sustained palpitations, dizziness, syncope, near syncope. Patient denying any fever chills. Patient denying any other significant discomfort. Patient is maintaining sinus rhythm. Review of systems: Rest review of systems negative. Medications: Medications have been reviewed. Reason For Visit: CHEST PAIN Physical Exam Vital Signs: Temp Pulse Resp BP Pulse Ox 98.1 F 55 L 16 118/59 L 99 12/06/17 12:27 12/06/17 12:27 12/06/17 12:27 12/06/17 12:27 12/06/17 12:27 Intake & Output 12/05/17 12/06/17 12/07/17 06:59 06:59 06:59 Intake Total 605 Output Total 0 200 Balance 0 405 Weight 121.6 kg 120.6 kg Exam: GENERAL: well-nourished and in no acute distress. Alert and oriented x3 HEAD: Atraumatic, normocephalic. EYES: Pupils equal round and reactive to light, extraocular movements intact, sclera anicteric, conjunctiva are normal. ENT: TMs normal, nares patent, oropharynx clear without exudates. Moist mucous membranes. No oral ulcerations or bleeding gums noted NECK: supple without lymphadenopathy. Trachea is central. No cervical or axillary lymphadenopathy noted. Carotids are 2+, JVD WNL LUNGS: Respiration seems nonlabored, no significant accessory muscle action noted. Breath sounds clear to auscultation bilaterally and equal noted. No wheezes rales or rhonchi noted. No significant dullness noted on percussion. CHEST: Palpation of the chest wall shows no significant chest wall tenderness. No other significant abnormalities noted. 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 ABDOMEN: Soft, no significant tenderness appreciated, normoactive bowel sounds. No guarding, no rebound. No rigidity noted . No masses appreciated. EXTREMITIES: Pedal pulses are 1-2+, no calf tenderness noted. No clubbing or cyanosis.trace to 1+ pedal edema noted NEUROLOGICAL: Focused neurological exam showed no significant neurologic deficit. Normal speech, no focal weakness appreciated. PSYCH: Normal mood, normal affect. Judgment and insight within normal limits. SKIN: No significant ecchymosis, skin is noted to be warm. MUSCULOSKELETAL EXAM: No significant acute joint swelling noted. Results Laboratory Results: 12/05/17 04:27 12/05/17 04:27 12/05/17 18:53 Urine Color YELLOW Urine Appearance CLOUDY Urine pH 6.0 Ur Specific [place]man 1.018 Urine Protein NEGATIVE Urine Glucose (UA) NEGATIVE Urine Ketones NEGATIVE Urine Blood NEGATIVE Urine Nitrite NEGATIVE Ur Leukocyte Esterase NEGATIVE Urine WBC (Auto) 2 Urine RBC (Auto) 2 12/04/17 12/05/17 12/05/17 22:47 04:27 11:47 Troponin I < 0.012 < 0.012 < 0.012 EKG Comments: Twelve-lead EKG shows sinus rhythm. No acute ST-T wave changes are noted Impressions: Chest X-Ray 12/04/17 16:34 IMPRESSION: No acute findings. Assessment & Plan - Diagnosis (1) Chest pain Qualifiers: Chest pain type: unspecified Qualified Code(s): R07.9 - Chest pain, unspecified Is this a current diagnosis for this admission?: Yes (2) Gastroesophageal reflux Qualifiers: Esophagitis presence: esophagitis presence not specified Qualified Code(s) : K21.9 - Gastro-esophageal reflux disease without esophagitis Is this a current diagnosis for this admission?: Yes (3) Obesity Qualifiers: Obesity type: unspecified obesity type Obesity classification: unspecified obesity classification Is this a current diagnosis for this admission?: Yes (4) Essential hypertension Is this a current diagnosis for this admission?: Yes - Notes Notes: Chest pain: This is resolved. Nuclear stress test results were reviewed with the patient. Patient being advised aggressive risk factor modification and medical management. Patient questions were answered. Hypertension: Reasonably well controlled. Blood pressure goal in this patient is 135/85 or less. This was discussed with the patient. Currently blood pressure under reasonable control. Better medication for this patient are LIA inhibitor/ARB/beta yvonne etc. discussed side effects of uncontrolled hypertension and also severe hypotension. GERD: Patient seems to have this condition. Proton pump inhibitors and other antacids are recommended. Obesity: Patient has been recommended for weight loss. Dyspnea on exertion: 2D echo results were discussed. Patient questions answered. Patient will benefit from regular walking program and weight loss. - Time Time with patient: Greater than 35 minutes - CODE STATUS was discussed, patient remains full code. Multiple medical problems were addressed. More than 50% of the time spent coordinating care, discussing management plans with involved caregivers. Management plans discussed with involved personnels. Medical decision making was of moderate to high complexity, patient's has multiple comorbidities. Medications reviewed and adjusted accordingly: Yes
--- NOTE | 2017-12-12 15:34 | PDOC DISCHARGE SUMMARY ---
General - Admit/Disc Date/PCP Admission Date/Primary Care Provider: 12/04/17 22:25 Discharge Date: 12/06/17 - Discharge Diagnosis (1) Chest pain Is this a current diagnosis for this admission?: Yes Summary: The patient complains of midsternal chest pressure. 12-lead EKG negative for acute ischemia or infarction. Serial cardiac enzymes have been negative. Cardiology consulted. Cardiolite stress test and echocardiogram benign. Chest x-ray benign. Continue aspirin, home dose hydrochlorothiazide. The patient reports significant family history of heart disease on father's side (multipl members before age 50 secondary to heart disease). The patient was encouraged to follow up with a hydroelectric mechanic within 1 week of discharge. She states that since moving here from [place] (unclear when) she has not seen a doctor. (2) Essential hypertension Is this a current diagnosis for this admission?: Yes Summary: Patient reports history of hypertension, continue home dose hydralazine. Of note, the patient was previously on a beta-yvonne which made her very bradycardic, she was actually evaluated for a possible pacemaker. Determined that she no longer needs the pacemaker once she stopped the BB medication (3) Nausea & vomiting Is this a current diagnosis for this admission?: Yes - Additional Information Resuscitation Status: Full Code Discharge Diet: Cardiac Discharge Activity: Activity As Tolerated Prescriptions: Aspirin [Aspirin 81 mg Chewable Tablet] 81 mg PO DAILY #30 tab Atorvastatin Calcium 20 mg PO QHS #30 tablet Nitroglycerin [Nitrostat 0.4 mg (1/150 Gr) Tabs 25/Bottle] 1 tab SL Q5MP PRN #1 bottle PRN Reason: Home Medications: Hydrochlorothiazide 25 mg PO DAILY #30 tablet 03/05/15 Aspirin [Aspirin 81 mg Chewable Tablet] 81 mg PO DAILY #30 tab 12/06/17 Atorvastatin Calcium 20 mg PO QHS #30 tablet 12/06/17 Nitroglycerin [Nitrostat 0.4 mg (1/150 Gr) Tabs 25/Bottle] 1 tab SL Q5MP PRN #1 bottle 12/06/17 History of Present Illness Patient complains of: fatigue, chest pain History of Present Illness: BOB AVALOS is a 47 year old female history of IN/nonobstructive coronary disease (post cardiac cath many years ago) and hypertension was admitted with above-mentioned complaints. According to the patient, she had cold-like symptoms for couple of days about a week ago. She had fever, cough and night sweats but her symptoms seemed to be resolving. And last night around 9 PM, she started feeling chest "heaviness" with pain radiating to her right arm and jaw. It lasted about a minute with no alleviating or aggravating factors. It was associated with shortness of breath, palpitations, nausea/vomiting and presyncope. And this afternoon while around 2:30 PM while sitting at her desk at work, she started feeling chest heaviness again with similar associated symptoms so she decided to come to the hospital for further management and treatment. She denied any fever this time or chills or any abdominal pain or heartburns. She has been having multiple episodes of diarrhea 4-5 times today with liquid, nonbloody stool. She said that her boyfriend had some upper respiratory infection recently. She denied any recent antibiotics use or eating different kind of food. She also denied any urinary symptoms or focal weakness. In the ED, her temperature was 98.5, heart rate 80, respiratory rate 16, blood pressure 155/83 with oxygen saturation of 92% on room air. Her WBC was 7.8 with hemoglobin of 13.5. Her initial troponin was negative. She received aspirin 325 mg 1 in addition to 1 inch of 2% Nitropaste and a 0.5 mg IV Dilaudid 1. Hospital Course Hospital Course: as above Physical Exam Vital Signs: Temp Pulse Resp BP Pulse Ox 98.1 F 55 L 16 118/59 L 99 12/06/17 12:27 12/06/17 12:27 12/06/17 12:27 12/06/17 12:27 12/06/17 12:27 General appearance: PRESENT: no acute distress, obese Head exam: PRESENT: atraumatic, normocephalic Eye exam: PRESENT: conjunctiva pink, EOMI, PERRLA. ABSENT: scleral icterus Ear exam: PRESENT: normal external ear exam Mouth exam: PRESENT: moist Neck exam: ABSENT: carotid bruit, JVD, lymphadenopathy, thyromegaly Respiratory exam: PRESENT: clear to auscultation leonard. ABSENT: rales, rhonchi, wheezes Cardiovascular exam: PRESENT: RRR, +S1, +S2. ABSENT: diastolic murmur, rubs, systolic murmur Pulses: PRESENT: normal radial pulses, normal dorsalis pedis pul Vascular exam: PRESENT: normal capillary refill GI/Abdominal exam: PRESENT: normal bowel sounds, soft. ABSENT: distended, guarding, mass, organolmegaly, rebound, tenderness Rectal exam: PRESENT: deferred Extremities exam: PRESENT: full ROM. ABSENT: calf tenderness, clubbing, pedal edema Musculoskeletal exam: PRESENT: ambulatory, full ROM Neurological exam: PRESENT: alert, awake, oriented to person, oriented to place , oriented to time, oriented to situation Psychiatric exam: PRESENT: appropriate affect, normal mood Skin exam: PRESENT: dry, intact, warm. ABSENT: cyanosis, rash Results Laboratory Results: 12/05/17 04:27 12/05/17 04:27 12/04/17 12/05/17 12/05/17 22:47 04:27 11:47 Troponin I < 0.012 < 0.012 < 0.012 Impressions: Chest X-Ray 12/04/17 16:34 IMPRESSION: No acute findings. Status: Imported from PACS Qualifiers - * [facility] BEING DISCHARGED WITH ANY OF THE FOLLOWING DIAGNOSIS?: No Plan Discharge Plan: The patient was discharged home with follow up to hydroelectric mechanic within 1 week. Continue home antihypertensives and initiate ASA and statin therapy Time Spent: Less than 30 Minutes
== END 2017-12-06 13:08 | disposition home or self-care (01) ==
LOC: ER 15:16 → EH 22:25 → 3N 12-05 00:48
PROVIDERS: ADMIT Internal Medicine Geriatric Medicine; ATTEND Internal Medicine Geriatric Medicine
DX: R07.9 Chest pain, unspecified (principal); I10 Essential (primary) hypertension; K21.9 Gastro-esophageal reflux disease without esophagitis; R11.2 Nausea with vomiting, unspecified; R19.7 Diarrhea, unspecified; I25.2 Old myocardial infarction; E66.01 Morbid (severe) obesity due to excess calories; Z68.42 Body mass index [BMI] 45.0-49.9, adult; Z87.891 Personal history of nicotine dependence; Z23 Encounter for immunization
CPT/HCPCS: 90471; 93005 ×4; 99285; 96374; 96375; 36415 ×2; 87040; 87086; 82553; 82962; 82550; 83735; 85025; 85027; 85610; 80048; 80053; 81001; 84484 ×2; 85379; 82803; 83605; 80061; 93306; 93017; 71046; 78452; 90686; 93010 ×3; G0378 ×4; A9500; J2785; J1650 ×2; J1170; J2405; J0280; Q9969

== ENCOUNTER 2019-04-28 08:02 | Emergency (ER) | payer BC ==
--- NOTE | 2019-04-28 09:13 | ER Document Report ---
ED Cardiac - General Chief Complaint: Chest Pressure Stated Complaint: CHEST PAIN Time Seen by Provider: 04/28/19 08:52 Mode of Arrival: Ambulatory Information source: Patient Notes: Patient is a 48-year-old female presented to the emergency department chief complaint of chest tightness. Patient reports this is been going on for the last couple of days. She states that she saw her shift production associate yesterday due to concerns over her elevated blood pressure as well as complaints of palpitations. She states that her shift production associate started her on metoprolol, she has not taken this yet. She did report that last night she took a new medication for restless legs. She states she was unable to sleep last night. Today she reports nausea with vomiting. TRAVEL OUTSIDE OF THE [place] IN LAST 30 DAYS: No - Related Data Allergies/Adverse Reactions: promethazine HCl [From Phenergan] Allergy (Verified 04/28/19 08:06) Past Medical History - General Information source: Patient - Social History Smoking Status: Never Smoker Frequency of alcohol use: None Drug Abuse: None Family History: Hypertension - Past Medical History Cardiac Medical History: Reports: Hx Atrial Fibrillation, Hx Coronary Artery Disease - nonobstructive., Hx Heart Attack, Hx Hypercholesterolemia, Hx Hypertension Renal/ Medical History: Denies: Hx Peritoneal Dialysis Past Surgical History: Reports: Hx Cardiac Catheterization - 2009, NO STENT, Hx Cholecystectomy, Hx Hysterectomy, Hx Tubal Ligation - Immunizations Immunizations up to date: Yes Hx Diphtheria, Pertussis, Tetanus Vaccination: Yes Review of Systems - Review of Systems Constitutional: No symptoms reported EENT: No symptoms reported Cardiovascular: Chest pain, Palpitations Respiratory: No symptoms reported Gastrointestinal: Nausea, Vomiting Genitourinary: No symptoms reported Female Genitourinary: No symptoms reported Musculoskeletal: No symptoms reported Skin: No symptoms reported Hematologic/Lymphatic: No symptoms reported Neurological/Psychological: No symptoms reported Physical Exam - Vital signs Vitals: Temp Pulse Resp BP Pulse Ox 97.7 F 83 17 148/94 H 95 04/28/19 08:14 04/28/19 08:14 04/28/19 08:14 04/28/19 08:14 04/28/19 08:14 - Notes Notes: PHYSICAL EXAMINATION: GENERAL: Well-appearing, well-nourished and in no acute distress. HEAD: Atraumatic, normocephalic. EYES: Pupils equal round and reactive to light, extraocular movements intact, conjunctiva are normal. ENT: Nares patent, oropharynx clear without exudates. Moist mucous membranes. NECK: Normal range of motion, supple without lymphadenopathy LUNGS: Breath sounds clear to auscultation bilaterally and equal. No wheezes rales or rhonchi. HEART: Regular rate and rhythm without murmurs ABDOMEN: Soft, nontender, nondistended abdomen. No guarding, no rebound. No masses appreciated. Female : deferred Musculoskeletal: Normal range of motion, no pitting or edema. No cyanosis. NEUROLOGICAL: Cranial nerves grossly intact. Normal speech, normal gait. Normal sensory, motor exams PSYCH: Normal mood, normal affect. SKIN: Warm, Dry, normal turgor, no rashes or lesions noted. Course - Re-evaluation Re-evalutation: 04/28/19 09:49 Patient actively vomiting, Zofran ordered. Patient reports chest pressure started yesterday. She does report she saw her shift production associate yesterday for evaluation of her hypertension. Laboratory 04/28/19 04/28/19 04/28/19 09:15 09:15 09:15 WBC 10.8 H RBC 4.65 Hgb 14.0 Hct 41.1 MCV 88 MCH 30.2 MCHC 34.1 RDW 14.2 H Plt Count 248 Seg Neutrophils % 76.9 Lymphocytes % 17.7 Monocytes % 3.9 Eosinophils % 1.3 Basophils % 0.2 Absolute Neutrophils 8.3 H Absolute Lymphocytes 1.9 Absolute Monocytes 0.4 Absolute Eosinophils 0.1 Absolute Basophils 0.0 Sodium 133.8 L Potassium 3.7 Chloride 96 L Carbon Dioxide 29 Anion Gap 9 BUN 17 Creatinine 0.98 Est GFR ( Amer) > 60 Est GFR (Non-Af Amer) > 60 Glucose 128 H Calcium 10.1 Total Bilirubin 0.4 Direct Bilirubin 0.2 Neonat Total Bilirubin Not Reportable Neonat Direct Bilirubin Not Reportable Neonat Indirect Bili Not Reportable AST 36 ALT 31 Alkaline Phosphatase 89 Troponin I < 0.012 Total Protein 8.5 H Albumin 4.5 04/28/19 12:16 WBC RBC Hgb Hct MCV MCH MCHC RDW Plt Count Seg Neutrophils % Lymphocytes % Monocytes % Eosinophils % Basophils % Absolute Neutrophils Absolute Lymphocytes Absolute Monocytes Absolute Eosinophils Absolute Basophils Sodium Potassium Chloride Carbon Dioxide Anion Gap BUN Creatinine Est GFR ( Amer) Est GFR (Non-Af Amer) Glucose Calcium Total Bilirubin Direct Bilirubin Neonat Total Bilirubin Neonat Direct Bilirubin Neonat Indirect Bili AST ALT Alkaline Phosphatase Troponin I < 0.012 Total Protein Albumin Chest X-Ray 04/28/19 08:52 IMPRESSION: NO ACUTE RADIOGRAPHIC FINDING IN THE CHEST. Head CT 04/28/19 12:05 IMPRESSION: NO ACUTE INTRACRANIAL IMAGING FINDINGS. EVIDENCE OF ACUTE STROKE: NO. During patient's emergency department stay she did develop sudden onset headache associated with an isolated episode of hypertension. A head CT was performed and is negative as outlined above. Her cardiac work-up today was unremarkable with 2- troponins. Her EKG was showing a normal sinus rhythm with no ectopy, normal axis, no ST segment elevations or depressions. Chest x-ray was negative. Patient does report she feels much better after administration of antiemetics here in the emergency department. She was monitored for several hours and had no obvious cardiac events on the monitor. She does have a shift production associate, she states she can follow-up with them, encouraged her to call them today to schedule an appointment for follow-up. Patient verbalized understanding and agreement with this plan. The patient's emergency department workup and current diagnosis were explained to the patient and or family. Follow-up instructions were provided. Medications if prescribed were discussed. Instructions for when to return to the emergency department including specific worrisome symptoms were discussed with the patient and/or family. - Vital Signs Vital signs: Temp Pulse Resp BP Pulse Ox 97.7 F 83 21 H 119/79 100 04/28/19 08:14 04/28/19 08:14 04/28/19 14:01 04/28/19 14:01 04/28/19 14:00 - Laboratory Result Diagrams: 04/28/19 09:15 04/28/19 09:15 Laboratory results interpreted by me: 04/28/19 04/28/19 09:15 09:15 WBC 10.8 H RDW 14.2 H Absolute Neutrophils 8.3 H Sodium 133.8 L Chloride 96 L Glucose 128 H Total Protein 8.5 H Discharge - Discharge Clinical Impression: Chest pain Qualifiers: Chest pain type: unspecified Qualified Code(s): R07.9 - Chest pain, unspecified Condition: Stable Disposition: HOME, SELF-CARE Additional Instructions: Chest Pain of Unclear Cause The exact cause of your chest pain isn't clear. Fortunately, there is no evidence of a dangerous medical condition. Further testing may be required to find the source of the pain. Most often, we find that this pain is coming from the chest wall -- the muscles or rib joints in the chest. But chest pain can come from the lung and lung lining, the esophagus, the heart valves or heart lining, and even the stomach or gallbladder. Rest. Eat lightly until the pain is gone. We may prescribe medicine for pain and inflammation. You should call the physician immediately if the pain radiates to the shoulder, jaw or arms; if you start to run a fever or develop a cough; or if you develop shortness of breath, or other new or alarming symptoms. Please keep the appointment you have with your shift production associate for Friday. Please return to the emergency department with any new or worsening symptoms. Continue taking all medications as prescribed by your primary care provider and shift production associate. Forms: Return to Work
[2019-04-28 09:27] LABS: ABSOLUTE EOSINOPHILS # (AUTO) 0.1 10^3/uL (0.0-0.6); ABSOLUTE LYMPHOCYTES (AUTO) 1.9 10^3/uL (0.5-4.7); ABSOLUTE MONOCYTES (AUTO) 0.4 10^3/uL (0.1-1.4); ABSOLUTE NEUT (AUTO) 8.3 10^3/uL (1.7-8.2); BASOPHILS % (AUTO) 0.2 % (0-2); EOSINOPHILS % (AUTO) 1.3 % (0-6); HEMATOCRIT 41.1 % (36.0-47.0); LYMPHOCYTES % (AUTO) 17.7 % (13-45); MEAN CORPUSCULAR HEMOGLOBIN 30.2 pg (27.0-33.4); MEAN CORPUSCULAR HGB CONC 34.1 g/dL (32.0-36.0); MEAN CORPUSCULAR VOLUME 88 fl (80-97); MONOCYTES % (AUTO) 3.9 % (3-13); PLATELET COUNT 248 10^3/uL (150-450); RED BLOOD COUNT 4.65 10^6/uL (3.72-5.28); RED CELL DISTRIBUTION WIDTH 14.2 % (11.5-14.0); SEGMENTED NEUTROPHILS % (AUTO) 76.9 % (42-78); TOTAL CELLS COUNTED % (AUTO) 100 %; WHITE BLOOD COUNT 10.8 10^3/uL (4.0-10.5)
[2019-04-28] MEDS ORDERED: ONDANSETRON HCL INJ/PF 4 MG/2 ML SDV IV ONE (09:49)
--- NOTE | 2019-04-28 09:59 | RADIOLOGY REPORT (SQ) ---
EXAM DESCRIPTION: CHEST 2 VIEWS COMPLETED DATE/TIME: 04/28/2019 9:42 am REASON FOR STUDY: chest pressure COMPARISON: 12/04/2017 EXAM PARAMETERS: NUMBER OF VIEWS: two views TECHNIQUE: Digital Frontal and Lateral radiographic views of the chest acquired. RADIATION DOSE: NA LIMITATIONS: none FINDINGS: LUNGS AND PLEURA: No opacities, masses or pneumothorax. No pleural effusion. MEDIASTINUM AND HILAR STRUCTURES: No masses or contour abnormalities. HEART AND VASCULAR STRUCTURES: Heart normal size. No evidence for failure. BONES: No acute findings. HARDWARE: None in the chest. OTHER: No other significant finding. IMPRESSION: NO ACUTE RADIOGRAPHIC FINDING IN THE CHEST. TECHNICAL DOCUMENTATION: JOB ID: [id number] [employer]- All Rights Reserved Reading location - IP/workstation name: [email or web address]
[2019-04-28 10:07] LABS: ALBUMIN 4.5 g/dL (3.5-5.0); ALKALINE PHOSPHATASE 89 U/L (38-126); ANION GAP 9 (5-19); ASPARTATE AMINO TRANSFERASE 36 U/L (14-36); BILIRUBIN,DIRECT 0.2 mg/dL (0.0-0.4); BILIRUBIN,TOTAL 0.4 mg/dL (0.2-1.3); BLOOD UREA NITROGEN 17 mg/dL (7-20); CALCIUM 10.1 mg/dL (8.4-10.2); CARBON DIOXIDE 29 mmol/L (22-30); CHLORIDE 96 mmol/L (98-107); GLUCOSE 128 mg/dL (75-110); POTASSIUM 3.7 mmol/L (3.6-5.0); TOTAL PROTEIN 8.5 g/dL (6.3-8.2)
[2019-04-28] MEDS ORDERED: METOCLOPRAMIDE HCL INJ/PF 10 MG/2 ML SDV IV ONE (10:47)
--- NOTE | 2019-04-28 12:40 | RADIOLOGY REPORT (SQ) ---
EXAM DESCRIPTION: CT HEAD WITHOUT COMPLETED DATE/TIME: 04/28/2019 12:26 pm REASON FOR STUDY: headache COMPARISON: None. TECHNIQUE: Axial images acquired through the brain without intravenous contrast. Images reviewed wi th bone, brain and subdural windows. Additional sagittal and coronal reconstructions were generated. Images stored on PACS. All CT scanners at this facility use dose modulation, iterative reconstruction, and/or weight based d osing when appropriate to reduce radiation dose to as low as reasonably achievable (ALARA). [facility]: Dose Right [facility]: CareDose [facility]: Dose Right [facility]: Teradose 4D [facility]: ChangePanda RADIATION DOSE: CT Rad equipment meets quality standard of care and radiation dose reduction techniq ues were employed. CTDIvol: 53.2 mGy. DLP: 964 mGy-cm. mGy. LIMITATIONS: None. FINDINGS: VENTRICLES: Normal size and contour. CEREBRUM: No masses. No hemorrhage. No midline shift. No evidence for acute infarction. Normal gra y/white matter differentiation. No areas of low density in the white matter. CEREBELLUM: No masses. No hemorrhage. No alteration of density. No evidence for acute infarction. EXTRAAXIAL SPACES: No fluid collections. No masses. ORBITS AND GLOBE: No intra- or extraconal masses. Normal contour of globe without masses. CALVARIUM: No fracture. PARANASAL SINUSES: No fluid or mucosal thickening. SOFT TISSUES: No mass or hematoma. OTHER: No other significant finding. IMPRESSION: NO ACUTE INTRACRANIAL IMAGING FINDINGS. EVIDENCE OF ACUTE STROKE: NO. COMMENT: Quality ID # [id number]: Final reports with documentation of one or more dose reduction techniques (e.g., Automated exposure control, adjustment of the mA and/or kV according to patient size, use of iterative reconstruction technique) TECHNICAL DOCUMENTATION: JOB ID: [id number] [employer]- All Rights Reserved Reading location - IP/workstation name: [email or web address]
--- NOTE | 2019-04-28 14:36 | EKG REPORT ---
SEVERITY:- ABNORMAL ECG - SINUS RHYTHM RBBB AND LAFB PROBABLE LEFT VENTRICULAR HYPERTROPHY : Confirmed by: Patrick Bird 28-Apr-2019 14:36:10
[2019-04-28] MEDS ORDERED: METOCLOPRAMIDE HCL ORAL SOLN 10 MG/10 ML UDCUP PO ONE (14:40)
[2019-04-28] MEDS ORDERED: MAG HYDROX/AL HYDROX/SIMETH SUSP 30 ML UDCUP PO ONE (14:40)
[2019-04-28] MEDS ORDERED: LIDOCAINE 2% VISCOUS SOLN 20 ML UDCUP PO ONE (14:40)
[2019-04-28 15:10] VITALS: BP 119/79
== END 2019-04-28 15:20 | disposition home or self-care (01) ==
LOC: ER 08:02
DX: R07.9 Chest pain, unspecified (principal); R51 Headache; R00.2 Palpitations; I10 Essential (primary) hypertension; R11.2 Nausea with vomiting, unspecified; Z90.49 Acquired absence of other specified parts of digestive tract; Z90.710 Acquired absence of both cervix and uterus; I25.2 Old myocardial infarction
CPT/HCPCS: 93005; 99285; 96374; 96375; 36415; 85025; 80053; 84484; 71046; 70450; 93010; J2765; J2405